=== PATIENT | male | born 1960 | race Caucasian/White ===

== ENCOUNTER 2020-02-25 07:16 | Emergency (ER) | payer OTHER ==
[2020-02-25] MEDS ORDERED: Thiamine HCl 200 MG/2 ML VIAL ONE (08:02)
[2020-02-25 08:17] LABS: Carbon Dioxide 20 mmol/L (23-31); Chloride 99 mmol/L (98-107); Potassium 4.4 mmol/L (3.5-5.1); Sodium 133 mmol/L (136-145)
[2020-02-25 08:18] LABS: ALT (SGPT) 30 U/L (8-55); AST (SGOT) 55 U/L (5-34); Albumin 3.6 g/dL (3.4-4.8); Alkaline Phosphatase 62 U/L (40-110); Anion Gap 18 mmol/L (10-20); BUN (Urea Nitrogen) 7 mg/dL (8.4-25.7); Calc. Creatinine Clearance 0 mL/min (70-130); Calcium 8.3 mg/dL (7.8-10.44); Glucose 86 mg/dL (80-115); Protein, Total 6.6 g/dL (5.8-8.1)
[2020-02-25 08:20] LABS: CKMB 1.7 ng/mL (0-6.6)
[2020-02-25 08:21] LABS: #Basophils 0.1 thou/uL (0.0-0.2); #Eosinphils 0.1 thou/uL (0.0-0.7); #Lymphocytes 2.2 thou/uL (1.20-3.40); #Monocytes 0.7 thou/uL (0.11-0.59); #Neutrophils 7.2 thou/uL (1.40-6.50); %Eosinophils 1.1 % (0.0-10.0); %Lymphocytes 21.1 % (21.0-51.0); %Monocytes 6.6 % (0.0-10.0); %Neutrophils 70.2 % (42.0-75.0); Hemoglobin 13.9 g/dL (14.0-18.0); MDiff Complete? YES; Mean Corpuscular HGB CONC 33.6 g/dL (32.0-36.0); Mean Corpuscular Hemoglobin 38.9 pg (27.0-31.0); Mean Platelet Volume 8.5 fL (7.4-10.4); Platelet Count 138 thou/uL (130-400); RBC Distribution Width 13.7 % (11.5-14.5); Red Blood Cell (RBC) Count 3.58 mill/uL (4.70-6.10); White Blood Cell (WBC) Count 10.3 thou/uL (4.8-10.8)
[2020-02-25 08:22] LABS: Macrocytosis SLIGHT = 6-15 cells (100X) (0-5/hpf)
[2020-02-25] MEDS ORDERED: Aspirin Chewable 81 MG TAB ONE (08:32)
--- NOTE | 2020-02-25 08:40 | CT ---
CT arteriogram head with IV contrast and 3-D imaging CT arteriogram neck with IV contrast and 3-D imaging HISTORY: Altered mental status. CVA. FINDINGS: No enhancing brain lesions are apparent. Chronic-type findings are as detailed on the CT he ad exam. There is normal branching of the great vessels at the aortic arch with good contrast opacification an d mild arterial calcification. Good flow into each carotid and vertebral system. Carotid calcification much more prominent on the left, with a short segment focus of approximately 70 % stenosis at the distal CCA and bifurcation. The internal carotid artery is widely patent. [place] is intact with persistent origin of the right posterior cerebral artery. No fo rick stenosis, thrombosis, or aneurysm. No enhancing brain lesions are apparent. Prominent degenerative changes of the cervical spine with central canal and foraminal stenoses greate st at the C5-6 level and minimal degenerative retrolisthesis. Grade 1 spondylolisthesis at the C2-3 level. The inferior most images show parenchymal scarring at the lung apices. Fluid is present within the la teral aspect of the right pleural space apex. IMPRESSION : No acute intracranial abnormalities are demonstrated. Atherosclerosis with short segment focus of moderate to high-grade stenosis at the left carotid bifur cation. Right pleural fluid partially visualized. Findings were called to Dr. Luciano at the [place] emergency department at 0813 hours. Code CR.
[2020-02-25] MEDS ORDERED: Iopamidol 370 76% 100 ML VIAL ONE (11:20)
--- NOTE | 2020-02-27 10:00 | CT ---
CT head noncontrast HISTORY: Altered mental status. Stroke alert. FINDINGS: No comparison. There is no evidence of acute intracranial hemorrhage or infarct. Diffuse cortical atrophy. Chronic i schemic small vessel changes throughout the periventricular white matter of each cerebral hemisphere and each basal ganglia. There is no mass effect or shift of midline structures. Calcification within the arterial structures of the brain base. Visualized paranasal sinuses remain well aerated. IMPRESSION : Atherosclerosis with evidence of small vessel disease. No acute abnormalities are demonstrated. Findings were related to Dr. Luciano on emergency Department [place] at 0732 hours. Code CR.
== END 2020-02-25 09:04 | disposition short-term general hospital (02) ==
LOC: BURERS 07:16
DX: I63.9 Cerebral infarction, unspecified (principal); R47.1 Dysarthria and anarthria; I10 Essential (primary) hypertension
CPT/HCPCS: 36415; 70450; 70496; 70498; 80053; 82553; 84484; 85025; 93005; 96365; J3411; Q9967

== ENCOUNTER 2020-04-06 00:39 | Emergency (ER) | payer OTHER ==
[2020-04-06] MEDS ORDERED: cefTRIAXone\\ROCEPHIN 2 GM VIAL ONE (02:17)
[2020-04-06] MEDS ORDERED: Sodium Chloride 0.9% 0 ML ONE (02:17)
[2020-04-06] MEDS ORDERED: Acetaminophen 325 MG TAB ONE (02:17)
[2020-04-06] MEDS ORDERED: Sodium Bicarb 50 MEQ/50 ML Abboject 8.4% SYRINGE ONE (16:16)
[2020-04-06] MEDS ORDERED: EPINEPHrine 1 MG/10 ML Abboject SYRINGE ONE (16:16)
== END 2020-04-06 02:45 | disposition expired ==
LOC: BURERS 00:39
DX: I46.9 Cardiac arrest, cause unspecified (principal); I11.0 Hypertensive heart disease with heart failure; I50.9 Heart failure, unspecified; Z79.82 Long term (current) use of aspirin; Z79.899 Other long term (current) drug therapy; Z79.01 Long term (current) use of anticoagulants
CPT/HCPCS: 31500; 92950; 96374; 96375; J0171; J0696; J1956; J3490